=== PATIENT | female | born 1950 | race Caucasian/White ===

== ENCOUNTER 2020-11-27 11:18 | Observation (INO) | payer MEDICARE ==
[~2020-11-27] VITALS: Ht 175.3 cm; Wt 110.7 kg
[~2020-11-27 11:18] MED LIST: AMLODIPINE BESYL5 MG PO; ATORVASTATIN CA20 MG PO; HYDROCHLOROTHIA25 MG PO; ISOSORBIDE MONO30 MG PO; LEVOTHYROXINE50 MCG PO; LISINOPRIL40 MG PO; METFORMIN HCL1000 MG PO; METOPROLOL TART50 MG PO; PROTONIX40 MG PO
[2020-11-27 13:52] LABS: HEMOGLOBIN 12.8 gm/dl (12.3-15.3); RED BLOOD COUNT 4.23 M/UL (4.00-5.10); WHITE BLOOD COUNT 9.1 K/UL (4.5-11.0)
[2020-11-27] MEDS ORDERED: VITAMIN D250 MCG PO (18:50)
[2020-11-27] MEDS ORDERED: FERROUS SULFAT325 MG PO (18:50)
[2020-11-27] MEDS ORDERED: DAILY VITE1 EACH PO (18:51)
[2020-11-27] MEDS ORDERED: FISH OIL 1,0001 EACH PO (18:51)
[2020-11-27 21:38] LABS: BUN/CREATININE RATIO 23 (0-10)
[2020-11-28 03:19] LABS: HEMOGLOBIN 11.9 gm/dl (12.3-15.3); RED BLOOD COUNT 3.99 M/UL (4.00-5.10); WHITE BLOOD COUNT 7.5 K/UL (4.5-11.0)
[2020-11-28 03:42] LABS: BUN/CREATININE RATIO 19 (0-10)
[2020-11-28 15:09] LABS: BUN/CREATININE RATIO 16 (0-10)
[2020-11-29 04:25] LABS: BUN/CREATININE RATIO 11 (0-10)
[2020-11-29] MEDS ORDERED: LOPRESSOR 25 MG25 MG PO (10:44)
== END 2020-11-29 15:56 | disposition home or self-care (01) ==
LOC: ER1 11:18 → MED SURG 4 17:19 → CDU 17:19 → MED SURG 4 18:28
PROVIDERS: Internal Medicine; Physician Assistant; Physician Assistant Medical; ADMIT Internal Medicine
DX: R55 Syncope and collapse (principal); E87.1 Hypo-osmolality and hyponatremia; E86.0 Dehydration; N30.00 Acute cystitis without hematuria; I25.10 Atherosclerotic heart disease of native coronary artery without angina pectoris; I25.2 Old myocardial infarction; I10 Essential (primary) hypertension; E11.9 Type 2 diabetes mellitus without complications; E03.9 Hypothyroidism, unspecified; Z85.42 Personal history of malignant neoplasm of other parts of uterus; Z20.822 Contact with and (suspected) exposure to COVID-19; Z79.84 Long term (current) use of oral hypoglycemic drugs; Z95.5 Presence of coronary angioplasty implant and graft; Z79.899 Other long term (current) drug therapy; Z92.21 Personal history of antineoplastic chemotherapy; Z90.710 Acquired absence of both cervix and uterus; Z88.5 Allergy status to narcotic agent
CPT/HCPCS: 36415; 71045; 80048; 80053; 81001; 82436; 82550; 82553; 82570; 82962; 83735; 83874; 83880; 83935; 84133; 84300; 84439; 84443; 84484; 85025; 87086; 93005; 94760; 96365; 96372; 96374; 96375; 96376; 99285; G0378; J0696; J3475; J7030; U0002

== ENCOUNTER → 2021-09-26 | Outpatient (CLI) | payer MEDICARE ==
[~2021-09-26] MED LIST changes: +DAILY VITE1 EACH PO; +FERROUS SULFAT325 MG PO; +FISH OIL 1,0001 EACH PO; +LOPRESSOR 25 MG25 MG PO; +VITAMIN D250 MCG PO
== END ==
LOC: KOH-I 08:00
DX: N28.89 Other specified disorders of kidney and ureter (principal); K76.0 Fatty (change of) liver, not elsewhere classified; N27.1 Small kidney, bilateral
CPT/HCPCS: 76775

== ENCOUNTER → 2021-11-21 | Outpatient (CLI) | payer MEDICARE | LOC: HEART 5 13:00 | DX: I35.0 Nonrheumatic aortic (valve) stenosis (principal); I51.89 Other ill-defined heart diseases; I51.7 Cardiomegaly | CPT/HCPCS: 93306 ==

== ENCOUNTER → 2022-02-27 | Outpatient (CLI) | payer MEDICARE ==
[~2022-02-27] MED LIST changes: +AMLODIPINE BESY10 MG PO; +ELIQUIS 5 MG TAB5 MG PO; +HYDROCHLOROTH12.5 MG PO; +LISINOPRIL10 MG PO
[2022-02-27 09:32] LABS: BUN/CREATININE RATIO 16 (0-10)
== END ==
LOC: LAB 07:57
PROVIDERS: Internal Medicine
DX: E87.1 Hypo-osmolality and hyponatremia (principal)
CPT/HCPCS: 36415; 80048